=== PATIENT | female | born 1975 | race Caucasian/White ===

== ENCOUNTER 2023-05-20 14:30 | Outpatient (CLI) | payer OTHER ==
[2023-05-20 15:33] LABS: Hematocrit 40.4 % (34.9-44.5); Hemoglobin 13.4 g/dL (12.0-15.5); Mean Corpuscular HGB CONC 33.2 g/dL (32.0-36.0); Mean Corpuscular Hemoglobin 30.3 pg (27.0-33.0); Mean Corpuscular Volume 91.4 fl (81.6-98.3); Mean Platelet Volume 10.2 fl (7.4-10.4); Platelet Count 181 10x3/uL (150-450); RBC Distribution Width 13.3 % (11.5-14.5); Red Blood Cell (RBC) Count 4.42 10x6/uL (3.90-5.03); White Blood Cell (WBC) Count 4.2 10x3/uL (3.5-10.5)
[2023-05-20 15:46] LABS: Anion Gap 14 mmol/L (10-20); BUN (Urea Nitrogen) 11 mg/dL (7.0-18.7); Calc. Creatinine Clearance 0 mL/min (70-130); Calcium 9.4 mg/dL (7.8-10.44); Carbon Dioxide 24 mmol/L (22-29); Chloride 105 mmol/L (98-107); Estimated GFR 67; Glucose 96 mg/dL (70-105); Potassium 4.3 mmol/L (3.5-5.1); Sodium 139 mmol/L (136-145)
== END 2023-05-20 14:31 | disposition home or self-care (01) ==
LOC: LABBT 14:30
PROVIDERS: ATTEND Neurological Surgery
DX: Z01.818 Encounter for other preprocedural examination (principal); M54.16 Radiculopathy, lumbar region
CPT/HCPCS: 80048; 85027; 93005; 93010

== ENCOUNTER 2023-05-24 05:42 | Day surgery (SDC) | payer OTHER ==
[2023-05-20 15:18] VITALS: BMI 21.2
[2023-05-24] MEDS ORDERED: CEFAZOLIN 2 GM VIAL ONE (06:22)
[2023-05-24] MEDS ORDERED: Sodium Chloride 0.9% 100 ML ONE (06:22)
[2023-05-24] MEDS ORDERED: Vancomycin 1 GM VIAL ONE (06:43)
[2023-05-24] MEDS ORDERED: Fentanyl 250 MCG/5 ML VIAL ONE (07:02)
[2023-05-24] MEDS ORDERED: PROPOFOL 20 ML ONE (07:02)
[2023-05-24] MEDS ORDERED: Rocuronium Bromide 10 MG/ML (10ML VIAL) ONE (07:03)
[2023-05-24] MEDS ORDERED: Lidocaine 1% PF 5 ML VIAL ONE (07:03)
[2023-05-24] MEDS ORDERED: Midazolam HCl 2 mg/2 ml Vial ONE (07:25)
[2023-05-24] MEDS ORDERED: Dexamethasone 20 MG/5 ML VIAL ONE (07:55)
[2023-05-24] MEDS ORDERED: Ondansetron PF 4 MG/2 ML Vial ONE (07:55)
[2023-05-24] MEDS ORDERED: PHENYLEPHRINE-NS 100 MCG/ML 10 ML SYRINGE ONE (08:13)
[2023-05-24] MEDS ORDERED: Ketorolac Tromethamine 30 MG (1 mL) VIAL ONE (08:19)
[2023-05-24] MEDS ORDERED: SUGAMMADEX SODIUM 200 MG/2 ML VIAL ONE (08:32)
[2023-05-24] MEDS ORDERED: fentaNYL 50 mcg/mL 1 mL Vial ONE ×2 (09:28→09:36)
[2023-05-24] MEDS ORDERED: HYDROcodone/Acetaminophen 5/325 mg Tablet ONE (10:07)
== END 2023-05-24 11:28 | disposition home or self-care (01) ==
LOC: SDC 05:42
PROVIDERS: ATTEND Neurological Surgery
PROC: 0SG00AJ Fusion of Lumbar Vertebral Joint with Interbody Fusion Device, Posterior Approach, Anterior Column, Open Approach (ICD-10-PCS; principal; 2023-05-24)
PROC: 0SG00J1 Fusion of Lumbar Vertebral Joint with Synthetic Substitute, Posterior Approach, Posterior Column, Open Approach (ICD-10-PCS; principal; 2023-05-24)
DX: M51.16 Intervertebral disc disorders with radiculopathy, lumbar region (principal); Z88.5 Allergy status to narcotic agent; Z91.011 Allergy to milk products; Z88.1 Allergy status to other antibiotic agents; M06.9 Rheumatoid arthritis, unspecified
CPT/HCPCS: C1713; C1889; J1100; J1885; J2250; J2405; J2704; J3010; J3370; J3490

== ENCOUNTER 2024-04-19 11:07 | Outpatient (CLI) | payer MEDICARE, OTHER | END 2024-04-19 11:08 | disposition home or self-care (01) | LOC: SCSMRI 11:07 | PROVIDERS: ATTEND Orthopaedic Surgery Orthopaedic Surgery of the Spine | DX: M54.42 Lumbago with sciatica, left side (principal); M47.816 Spondylosis without myelopathy or radiculopathy, lumbar region; G89.29 Other chronic pain; Z98.1 Arthrodesis status | CPT/HCPCS: 72148 ==